=== PATIENT | male | born 1995 | race Caucasian/White ===

== ENCOUNTER 2017-05-14 13:05 | Emergency (ER) | payer OTHER, MEDICAID ==
[~2017-05-14] VITALS: Ht 175.3 cm; Wt 74.8 kg
[~2017-05-14 13:05] MED LIST: CIPRO500 MG PO; ELIMITE60 GM TP; HYDROXYZINE HCL25 M2 PO; KEFLEX500 MG PO; NOHOMEMEDICATIONS; PERMETHRIN60 GM TOP; PREDNISONE 10 M10 M1 PO; PREDNISONE 20 M20 M1 PO; TRIAMCINOLONE A80 G2 TOP; VISTARIL 25 MG25 M1 PO; ZYRTEC10 M4 PO
[2017-05-14 13:27] VITALS: BP 145/96
[2017-05-14] MEDS ORDERED: ACTICIN 5% CREA60 G1 TOP (13:36)
[2017-05-14] MEDS ORDERED: BACTROBAN CREAM30 G1 TOP (13:36)
== END 2017-05-14 13:54 | disposition home or self-care (01) ==
LOC: M.ERS 13:05
DX: R21 Rash and other nonspecific skin eruption (principal)

== ENCOUNTER 2018-04-16 17:47 | Emergency (ER) | payer OTHER ==
[~2018-04-16] VITALS: Ht 175.3 cm; Wt 68.0 kg
[~2018-04-16 17:47] MED LIST changes: +ACTICIN 5% CREA60 G1 TOP; +BACTROBAN CREAM30 G1 TOP
[2018-04-16 17:59] LABS: URINE BILIRUBIN NEGATIVE (Negative); URINE BLOOD NEGATIVE (Negative); URINE CLARITY CLEAR; URINE COLOR YELLOW; URINE GLUCOSE-RANDOM NEGATIVE (Negative); URINE KETONES NEGATIVE (Negative); URINE LEUKOCYTES-REFLEX NEGATIVE (Negative); URINE NITRITE-REFLEX NEGATIVE (Negative); URINE PROTEIN NEGATIVE (Negative); URINE UROBILINOGEN 0.2 E.U./dl (0.2-1.0)
[2018-04-16 18:31] VITALS: BP 137/79
== END 2018-04-16 18:31 | disposition home or self-care (01) ==
LOC: M.ERS 17:47
PROVIDERS: Nurse Practitioner Family
DX: Z11.3 Encounter for screening for infections with a predominantly sexual mode of transmission (principal); Z20.2 Contact with and (suspected) exposure to infections with a predominantly sexual mode of transmission; R30.0 Dysuria; Z86.19 Personal history of other infectious and parasitic diseases

== ENCOUNTER 2018-11-19 14:54 | Emergency (ER) | payer OTHER ==
[~2018-11-19] VITALS: Ht 175.3 cm; Wt 68.0 kg
[2018-11-19 15:39] LABS: URINE BILIRUBIN NEGATIVE (Negative); URINE BLOOD NEGATIVE (Negative); URINE CLARITY CLEAR; URINE COLOR YELLOW; URINE GLUCOSE-RANDOM NEGATIVE (Negative); URINE KETONES NEGATIVE (Negative); URINE LEUKOCYTES-REFLEX NEGATIVE (Negative); URINE NITRITE-REFLEX NEGATIVE (Negative); URINE PROTEIN NEGATIVE (Negative); URINE UROBILINOGEN 0.2 E.U./dl (0.2-1.0)
[2018-11-19 16:03] VITALS: BP 132/66
== END 2018-11-19 16:04 | disposition home or self-care (01) ==
LOC: M.ERS 14:54
PROVIDERS: Physician Assistant
DX: Z20.2 Contact with and (suspected) exposure to infections with a predominantly sexual mode of transmission (principal)

== ENCOUNTER 2019-05-28 01:24 | Emergency (ER) | payer OTHER ==
[~2019-05-28] VITALS: Ht 175.3 cm; Wt 68.0 kg
[2019-05-28 01:58] LABS: ABSOLUTE EOSINOPHILS 0.2 thou/uL (0.0-0.7); ABSOLUTE LYMPHOCYTES 1.4 thou/uL (0.8-5.3); ABSOLUTE MONOCYTES 0.8 thou/uL (0.0-1.2); ABSOLUTE NEUTROPHILS 5.2 thou/uL (1.6-8.1); BASOPHILS 0.7 %; EOSINOPHILS 3.1 %; HEMATOCRIT 48.5 % (42.0-52.0); HEMOGLOBIN 17.1 gm/dL (14.0-18.0); MCH 30.7 pg (26.0-34.0); MCHC 35.3 g/dL (28.0-37.0); MCV 86.9 fL (80.0-100.0); MONOCYTES 10.1 %; MPV 8.9 fl. (7.2-11.1); NUCLEATED RBCS 0 /100WBC; PLATELET COUNT* 231 thou/uL (150-400); POLYS 68.1 %; RBC 5.59 mil/uL (4.50-6.00); WBC 7.6 thou/uL (4.0-11.0)
[2019-05-28 02:11] LABS: CALCIUM 8.5 mg/dL (8.5-10.1); CREATININE 1.2 mg/dL (0.6-1.3); POTASSIUM 3.8 mmol/L (3.5-5.1)
[2019-05-28 02:16] LABS: ALBUMIN 4.4 g/dL (3.4-5.0); TOTAL PROTEIN 7.5 g/dL (6.4-8.2)
[2019-05-28 02:18] LABS: INFLUENZA A ANTIGEN Negative (Negative); INFLUENZA B ANTIGEN Negative (Negative)
[2019-05-28 02:46] VITALS: BP 151/89
== END 2019-05-28 02:46 | disposition home or self-care (01) ==
LOC: M.ERS 01:24
PROVIDERS: Family Medicine
DX: F41.0 Panic disorder [episodic paroxysmal anxiety] (principal); R42 Dizziness and giddiness

== ENCOUNTER 2019-08-03 14:39 | Emergency (ER) | payer OTHER ==
[~2019-08-03] VITALS: Ht 175.3 cm; Wt 68.0 kg
[2019-08-03 15:16] LABS: URINE BILIRUBIN NEGATIVE (Negative); URINE BLOOD NEGATIVE (Negative); URINE CLARITY CLEAR; URINE COLOR YELLOW; URINE GLUCOSE-RANDOM NEGATIVE (Negative); URINE KETONES NEGATIVE (Negative); URINE LEUKOCYTES-REFLEX NEGATIVE (Negative); URINE NITRITE-REFLEX NEGATIVE (Negative); URINE PROTEIN NEGATIVE (Negative)
[2019-08-03 15:54] VITALS: BP 115/62
== END 2019-08-03 15:55 | disposition home or self-care (01) ==
LOC: M.ERS 14:39
PROVIDERS: Nurse Practitioner Family
DX: Z11.3 Encounter for screening for infections with a predominantly sexual mode of transmission (principal); Z86.19 Personal history of other infectious and parasitic diseases

== ENCOUNTER 2019-08-21 12:54 | Emergency (ER) | payer OTHER ==
[~2019-08-21] VITALS: Ht 175.3 cm; Wt 68.0 kg
[2019-08-21] MEDS ORDERED: PREDNISONE 20 M20 M1 PO (13:12)
[2019-08-21 13:17] VITALS: BP 144/81
== END 2019-08-21 13:18 | disposition home or self-care (01) ==
LOC: M.ERS 12:54
DX: L24.7 Irritant contact dermatitis due to plants, except food (principal)

== ENCOUNTER 2020-08-16 15:35 | Emergency (ER) | payer OTHER ==
[~2020-08-16] VITALS: Ht 177.8 cm; Wt 68.0 kg
[2020-08-16] MEDS ORDERED: XYZBAC TABLET1 EACH PO (15:51)
[2020-08-16 16:25] LABS: URINE BILIRUBIN NEGATIVE (Negative); URINE BLOOD NEGATIVE (Negative); URINE CLARITY CLEAR; URINE COLOR YELLOW; URINE GLUCOSE-RANDOM NEGATIVE (Negative); URINE KETONES NEGATIVE (Negative); URINE LEUKOCYTES-REFLEX NEGATIVE (Negative); URINE NITRITE-REFLEX NEGATIVE (Negative); URINE PROTEIN NEGATIVE (Negative); URINE UROBILINOGEN 0.2 E.U./dl (0.2-1.0)
[2020-08-16 16:35] VITALS: BP 124/65
== END 2020-08-16 16:36 | disposition home or self-care (01) ==
LOC: M.ERS 15:35
PROVIDERS: Nurse Practitioner Family
DX: A56.8 Sexually transmitted chlamydial infection of other sites (principal); Z79.899 Other long term (current) drug therapy